=== PATIENT | male | born 1940 | race Caucasian/White ===

== ENCOUNTER → 2022-11-21 | Outpatient (CLI) | payer MEDICARE ==
--- NOTE | 2022-11-23 21:53 | PE ---
EXAMINATION TYPE: PET CT fusion skull to thigh DATE OF EXAM: 11/21/2022 COMPARISON: No recent CT Prior PET/CT: 06/23/2022 HISTORY: Esophageal cancer TECHNIQUE: Following the intravenous administration of 10.55 mCi of F-18 FDG, whole body images are performed from the skull base to the midthigh. Images are reviewed on the computer in the coronal, a xial, and sagittal planes. Reconstructed rotating images are created on independent workstation and reviewed on the computer. A localization and attenuation correction CT is performed in conjunction with the PET scan. DLP: 459.70 mGycm SCAN: Subsequent Blood glucose: 93 mg/dL Average Mediastinum SUV: 1.56 Average Liver SUV: 2.07 FINDINGS: NECK: No abnormal uptake THORAX: There is a 1.1 cm pretracheal lymph node. This has intermediate uptake of 1.86. ABDOMEN: There is some fullness within the right adrenal gland. No suspicious uptake is evident. Some scattered reticular within the colon. PELVIS: No abnormal uptake OSSEOUS STRUCTURES: No abnormal uptake LOCALIZATION CT: There is a hypodense area within the inferior left lobe thyroid. This could be furth er evaluated with ultrasound. Coronary artery calcification is noted. Dependent increased infiltrates are present more focal in the posterior medial right lung. Correlate for atelectasis. Follow-up is r ecommended. COMPARISON: Intense uptake at the gastroesophageal junction is not present on the current examination . IMPRESSION: 1. No suspicious uptake to suggest recurrent or metastatic esophageal cancer. 2. Intermediate signal lymph node pretracheal space. This could be a reactive lymph node.
== END | disposition home or self-care (01) ==
LOC: RADPETMAIN 10:15
PROVIDERS: ATTEND Internal Medicine Hematology & Oncology
DX: C15.5 Malignant neoplasm of lower third of esophagus (principal)
CPT/HCPCS: 78815; A9552

== ENCOUNTER → 2023-02-12 | Outpatient (CLI) | payer MEDICARE ==
--- NOTE | 2023-02-13 08:24 | PE ---
EXAMINATION TYPE: PET CT fusion skull to thigh DATE OF EXAM: 02/12/2023 CLINICAL INDICATION:Male, 82 years old with history of C15.5 Esophageal CA; TECHNIQUE: Following the intravenous administration of 12.3 mCi of F-18 FDG, whole body images are performed from the skull base to the midthigh. Images are reviewed on the computer in the coronal, a xial, and sagittal planes. Reconstructed rotating images are created on independent workstation and reviewed on the computer. A non-contrast CT is performed in conjunction with the PET scan. Glucose level 90 mg/dL CT DLP: 525 mGycm, Automated exposure control for dose reduction was used. COMPARISON: CT None, PET/CT 11/21/2022, FINDINGS: Mediastinal SUV mean is 2.1. Hepatic parenchyma SUV mean is 3.0. SKULL BASE AND NECK: No suspicious radiotracer activity. CHEST, MEDIASTINUM, AND HILAR REGION: Abnormal FDG activity. * Right low paratracheal lymph node max SUV 3.7 measuring 8 mm in short axis., Previously max SUV 2. 0 * superior left pulmonary hilum lymph node which is increase in metabolic activity max SUV 4.4, pre viously 2.0. * Left lower lobe pulmonary nodule-like opacity max SUV 4.2 there are some other areas of patchy upt john paul in the lung bases medially. On the right max SUV 3.9 and left 4.2. ABDOMEN AND PELVIS: No suspicious radiotracer activity. MUSCULOSKELETAL STRUCTURES: Sclerotic focus within the left acromion/scapula max SUV 4.7 previously 1 .6. Focus of uptake within the right proximal humerus max SUV 4.4. OTHER CT: Atherosclerosis of the carotid bifurcations. Bilateral aphakia. Severe coronary artery athe rosclerosis. Scattered reticular opacities throughout the lungs. Fusion hardware in the lower spine. Bilateral gynecomastia changes. IMPRESSION: Increasing metabolic activity within left superior pulmonary hilum lymph node and right low paratrach eal lymph node. Given some uptake within the lung parenchyma itself in the lung bases findings could be secondary to infectious/inflammatory process. Consider short-term follow-up CT to ensure stability .
== END | disposition home or self-care (01) ==
LOC: RADPETMAIN 14:34
PROVIDERS: ATTEND Internal Medicine Hematology & Oncology
DX: C15.5 Malignant neoplasm of lower third of esophagus (principal)
CPT/HCPCS: 78815; A9552

== ENCOUNTER 2024-01-12 17:11 | Observation (INO) | payer MEDICARE ==
--- NOTE | 2024-01-12 17:50 | ED ---
General Adult HPI - General Chief complaint: Weakness Stated complaint: cancer pt, cant swallow Time Seen by Provider: 01/12/24 17:31 Source: patient, family, RN notes reviewed, old records reviewed Mode of arrival: ambulatory Limitations: no limitations - History of Present Illness Initial comments: 83-year-old male presenting for evaluation of painful swallowing. Patient has known esophageal mass and he has received treatment including radiation. He states he had recent endoscopy showing an ulceration on the tumor. He is on Carafate and omeprazole. He is unable to tolerate any significant nutrition even liquids are painful to swallow. Patient has lost 30 pounds. - Related Data Allergies Allergy/AdvReac Type Severity Reaction Status Date / Time hayfever AdvReac Itching Uncoded 01/12/24 17:28 Review of Systems ROS Statement: Those systems with pertinent positive or pertinent negative responses have been documented in the HPI. ROS Other: All systems not noted in ROS Statement are negative. Past Medical History Additional Past Medical History / Comment(s): Esophageal cancer (August 2022 diagnosis) Chemo and radiation History of Any Multi-Drug Resistant Organisms: None Reported Past Psychological History: No Psychological Hx Reported Smoking Status: Former smoker Past Alcohol Use History: Occasional General Exam Limitations: no limitations General appearance: alert, in no apparent distress Head exam: Present: atraumatic, normocephalic Eye exam: Present: normal appearance, PERRL ENT exam: Present: normal exam, normal oropharynx Neck exam: Present: normal inspection. Absent: tenderness, meningismus Respiratory exam: Present: normal lung sounds bilaterally. Absent: respiratory distress Cardiovascular Exam: Present: regular rate, normal rhythm GI/Abdominal exam: Present: soft. Absent: distended, tenderness Extremities exam: Present: normal inspection, normal capillary refill. Absent: pedal edema Neurological exam: Present: alert, oriented X3 Psychiatric exam: Present: normal affect, normal mood Skin exam: Present: warm, dry, intact. Absent: cyanosis, diaphoretic Course Vital Signs 01/12/24 17:22 Temperature 98.3 F Pulse Rate 64 Respiratory 16 Rate Blood Pressure 98/51 O2 Sat by Pulse 100 Oximetry Medical Decision Making - Medical Decision Making Was pt. sent in by a medical professional or institution (, PA, SENIOR LINUX SYSTEMS ENGINEER, urgent care, hospital, or [place] health care facility...) When possible be specific @ -No Did you speak to anyone other than the patient for history (EMS, parent, family, police, friend...)? What history was obtained from this source @ -No Did you review nursing and triage notes (agree or disagree)? Why? @ -I reviewed and agree with nursing and triage notes Were old charts reviewed (outside hosp., previous admission, EMS record, old EKG, old radiological studies, urgent care reports/EKG's, [place] health care facility records)? Report findings @ -No old charts were reviewed Differential Diagnosis: Known esophageal mass, dehydration, malnutrition EKG interpreted by me (3pts min.). @ -As above X-rays interpreted by me (1pt min.). @ -None done CT interpreted by me (1pt min.). @ -None done U/S interpreted by me (1pt. min.). @ -None done What testing was considered but not performed or refused? (CT, X-rays, U/S, labs)? Why? @ -None What meds were considered but not given or refused? Why? @ -None Did you discuss the management of the patient with other professionals (professionals i.e. , PA, SENIOR LINUX SYSTEMS ENGINEER, lab, RT, psych nurse, social media executive, sales force developer, teacher, chief sales officer, disease case manager)? Give summary @ -Dr. Crain Was smoking cessation discussed for >3mins.? @ -No Was critical care preformed (if so, how long)? @ -No Were there social determinants of health that impacted care today? How? (Homelessness, low income, unemployed, alcoholism, drug addiction, transportation, low edu. Level, literacy, decrease access to med. care, group home, rehab)? @ -No Was there de-escalation of care discussed even if they declined (Discuss DNR or withdrawal of care, Hospice)? DNR status @ -No What co-morbidities impacted this encounter? (DM, HTN, Smoking, COPD, CAD, Cancer, CVA, ARF, Chemo, Hep., AIDS, mental health diagnosis, sleep apnea, morbid obesity)? @Esophageal cancer Was patient admitted / discharged? Hospital course, mention meds given and route, prescriptions, significant lab abnormalities, going to OR and other pertinent info. @ -[83-year-old male with progressively worsening painful and difficulty swallowing with known esophageal cancer and esophageal ulceration. Patient has lost a significant amount of weight secondary to inability to swallow and painful swallowing. Given IV fluids. Electrolytes and blood counts are obtained. Patient is anemic without baseline for comparison. Patient will benefit from evaluation by his oncologist Dr. Kimbrough and possibly gastroenterolog y for PEG tube placement. Case discussed with Dr. Crain who will admit. Undiagnosed new problem with uncertain prognosis? @ -No Drug Therapy requiring intensive monitoring for toxicity (Heparin, Nitro, Insulin, Cardizem)? @ -No Were any procedures done? @ -No Diagnosis/symptom? @ -Esophageal cancer, malnutrition, dehydration Acute, or Chronic, or Acute on Chronic? @Acute on chronic Uncomplicated (without systemic symptoms) or Complicated (systemic symptoms)? @ -Default Side effects of treatment? @ -No Exacerbation, Progression, or Severe Exacerbation? @ -No Poses a threat to life or bodily function? How? (Chest pain, USA, OR, pneumonia, PE, COPD, DKA, ARF, appy, cholecystitis, CVA, Diverticulitis, Homicidal, Suicidal, threat to staff... and all critical care pts) @ -[Yes, renal failure, electrolyte abnormality, - Lab Data Result diagrams: 01/12/24 18:02 01/12/24 18:02 Lab Results 01/12/24 01/12/24 Range/Units 18:02 18:02 WBC 8.1 (3.8-10.6) k/uL RBC 2.81 L (4.30-5.90) m/uL Hgb 9.1 L (13.0-17.5) gm/dL Hct 27.1 L (39.0-53.0) % MCV 96.6 (80.0-100.0) fL MCH 32.3 (25.0-35.0) pg MCHC 33.5 (31.0-37.0) g/dL RDW 12.7 (11.5-15.5) % Plt Count 272 (150-450) k/uL MPV 8.5 Neutrophils % 83 % Lymphocytes % 9 % Monocytes % 6 % Eosinophils % 0 % Basophils % 0 % Neutrophils # 6.7 (1.3-7.7) k/uL Lymphocytes # 0.8 L (1.0-4.8) k/uL Monocytes # 0.4 (0-1.0) k/uL Eosinophils # 0.0 (0-0.7) k/uL Basophils # 0.0 (0-0.2) k/uL Sodium 138 (137-145) mmol/L Potassium 3.6 (3.5-5.1) mmol/L Chloride 107 (98-107) mmol/L Carbon Dioxide 25 (22-30) mmol/L Anion Gap 6 mmol/L BUN 24 H (9-20) mg/dL Creatinine 0.92 (0.66-1.25) mg/dL Est GFR (CKD-EPI)AfAm 88 (>60 ml/min/1.73 sqM) Est GFR (CKD-EPI)NonAf 76 (>60 ml/min/1.73 sqM) Glucose 105 H (74-99) mg/dL Calcium 9.1 (8.4-10.2) mg/dL Total Bilirubin 0.4 (0.2-1.3) mg/dL AST 18 (17-59) U/L ALT 13 (4-49) U/L Alkaline Phosphatase 56 (38-126) U/L Total Protein 5.6 L (6.3-8.2) g/dL Albumin 3.5 (3.5-5.0) g/dL Disposition Clinical Impression: Anemia, Dehydration, Esophageal cancer Disposition: ADMITTED IP TO THIS HOSP Condition: Stable Is patient prescribed a controlled substance at d/c from ED?: No Referrals: Corey Guevara MD [Primary Care Provider] - 1-2 days Time of Disposition: 18:31
[2024-01-12] MEDS: SODIUM CHLORIDE 0.9% 500 ML 500 ML IV ONE (18:01)
[2024-01-12 18:18] LABS: ALT 13 U/L (4-49); AST 18 U/L (17-59); African American GFR (CKD) 88 (>60 ml/min/1.73 sqM); Albumin 3.5 g/dL (3.5-5.0); Alkaline Phosphatase 56 U/L (38-126); Anion Gap 6 mmol/L; Blood Urea Nitrogen 24 mg/dL (9-20); Calcium 9.1 mg/dL (8.4-10.2); Carbon Dioxide 25 mmol/L (22-30); Chloride 107 mmol/L (98-107); Glucose 105 mg/dL (74-99); Non-African American GFR(CKD) 76 (>60 ml/min/1.73 sqM); Potassium 3.6 mmol/L (3.5-5.1); Sodium 138 mmol/L (137-145); Total Bilirubin 0.4 mg/dL (0.2-1.3); Total Protein 5.6 g/dL (6.3-8.2)
[2024-01-12 18:24] LABS: Basophils % (A) 0 %; Eosinophils % (A) 0 %; HCT 27.1 % (39.0-53.0); HGB 9.1 gm/dL (13.0-17.5); Lymphocytes # (A) 0.8 k/uL (1.0-4.8); Lymphocytes % (A) 9 %; MCH 32.3 pg (25.0-35.0); MCHC 33.5 g/dL (31.0-37.0); MCV 96.6 fL (80.0-100.0); Mean Platelet Volume 8.5; Monocytes # (A) 0.4 k/uL (0-1.0); Monocytes % (A) 6 %; Neutrophils # (A) 6.7 k/uL (1.3-7.7); Neutrophils % (A) 83 %; Platelet Count 272 k/uL (150-450); RBC 2.81 m/uL (4.30-5.90); RDW 12.7 % (11.5-15.5); WBC 8.1 k/uL (3.8-10.6)
[2024-01-12] MEDS ORDERED: HYDROmorphone 0.5 MG/0.5 ML SYRINGE IVP PRN (18:26)
[2024-01-12] MEDS ORDERED: NALOXONE 0.4 MG/ML 1 ML VIAL IV PRN (18:26)
[2024-01-12] MEDS: DEXTROSE 5%-0.9% NACL 1,000 ML IV SCH (18:42)
[2024-01-12] MEDS: PANTOPRAZOLE 40 MG/10 ML VIAL IVP STA (18:43)
[2024-01-12] MEDS: PANTOPRAZOLE 40 MG/10 ML VIAL IVP SCH (20:59)
--- NOTE | 2024-01-12 22:10 | P.HPIM ---
History of Present Illness H&P Date: 01/12/24 Chief Complaint: Painful swallowing This is a very pleasant 83-year-old patient who follows with Dr. Guevara. Oncologist Dr. Kimbrough. Patient has a diagnosis of esophageal cancer. Patient's last EGD was with Dr. Gore out of [facility] 6 weeks ago. He was told he has a localized esophageal tumor with a ulcer on top of it. He has been offered surgery but patient has declined the same. Patient the past has received 5 weeks of chemotherapy followed by 5 weeks of x-ray radiation. This was followed by 3 nuclear radiation this was about 3 months ago. For 5 to 6 weeks patient noticed that he been having increasing pain with swallowing swallowing which has become much more significant in 3 weeks. Unable to keep anything really down. Given having some custard in the ER was very painful he had to stop after 2 3 teaspoons. He does follow with oncologist Dr. Kimbrough. Has been losing weight. Patient was drinking up to 1 dozen beers a week. Up till about 2 weeks ago. Review of systems: GEN.: Decreased appetite, weight loss EYES: None HEENT: None NECK: None RESPIRATORY: None CARDIOVASCULAR: None GASTROINTESTINAL: Painful swallowing GENITOURINARY: None MUSCULOSKELETAL: None LYMPHATICS: None HEMATOLOGICAL: None PSYCHIATRY: None NEUROLOGICAL: None Social history: Lives alone. Recently become a . Patient smoked for about 20 years stopped about 40 years ago. Retired from [employer] patient does drink a dozen beer a week. Last drink was 2 weeks ago. Physical examination: VITAL SIGNS: 97.6, 72, 18, 128 x 54, 100% room air GENERAL: BMI 19.3, laying in bed awake a bit tired appearing. EYES: Pupils equal. Conjunctiva christy l. HEENT: External appearance of nose and ears normal, oral cavity grossly normal. NECK: JVD not raised; masses not palpable. HEART: First and second heart sounds are normal; no edema. LUNGS: Respiratory rate normal; clear to auscultation. ABDOMEN: Soft, nontender, liver spleen not palpable, no masses palpable. PSYCH: Alert and oriented x3; mood and affect christy l. MUSCULOSKELETAL:No Clubbing/cyanosis;muscles-grossly intact. Decreased muscle mass subcutaneous fat. NEUROLOGICAL: Cranial nerves grossly intact; no facial asymmetry, power and sensation grossly intact. LYMPHATICS: No lymph nodes palpable in the axilla and neck INVESTIGATIONS, reviewed in the clinical context: January 12, 2024: White count 8.1 hemoglobin 9.1 platelets 232 sodium 138 potassium 3.6 creatinine 0.92 BUN 24 Assessment plan: -Odynophagia, resulting from patient having esophageal tumor which is above the esophagogastro junction. It is somewhat localized from what he tells me. His last EGD [address] Gore at [facility]. He also has an ulcer on top of the tumor. He was offered surgery but he declined the same. Now patient for the last 5-6 is having more more trouble and painful eating. It may be notices patient is drinking about 1 dozen beers every week up till 2 weeks ago. Had a lengthy discussion with the patient. Other option will be having a feeding tube. But given that he was given an option that since the tumor is localized then he should go back and talk to his surgeon/oncologist about resection of the tumor and may get some quality of life. Dr. Kimbrough from oncology is being consulted here who is his oncologist -Weight loss from poor appetite from painful swallowing -Essential hypertension Vasotec -Hyperlipidemia Zocor 40 mg nightly -Esophageal cancer supposedly localized with a ulcer on top of it. Follow-up with Dr. Kimbrough oncologist -DNR -Patient's son Carlos and his daughter Elis other medical POA Care was discussed with patient. Questions answered. Past Medical History Additional Past Medical History / Comment(s): Esophageal cancer (August 2022 diagnosis) Chemo and radiation History of Any Multi-Drug Resistant Organisms: None Reported Past Psychological History: No Psychological Hx Reported Smoking Status: Former smoker Past Alcohol Use History: Occasional Medications and Allergies Home Medications Medication Instructions Recorded Confirmed Type Enalapril [Vasotec] 10 mg PO DAILY 01/12/24 01/12/24 History Omeprazole 40 mg PO AC-BID 01/12/24 01/12/24 History Simvastatin [Zocor] 40 mg PO HS 01/12/24 01/12/24 History Sucralfate [Carafate] 1 gm PO QID 01/12/24 01/12/24 History Allergies Allergy/AdvReac Type Severity Reaction Status Date / Time hayfever AdvReac Itching Uncoded 01/12/24 18:49 Physical Exam Vitals: Vital Signs Temp Pulse Pulse Resp BP BP Pulse Ox 01/12/24 21:50 97.6 F 72 18 128/54 100 01/12/24 21:23 72 18 99/51 01/12/24 20:17 62 18 111/56 99 01/12/24 17:22 98.3 F 64 16 98/51 100 Intake and Output 01/12/24 01/12/24 01/12/24 06:59 14:59 22:59 Other: Weight 64.41 kg Results CBC & Chem 7: 01/12/24 18:02 01/12/24 18:02 Labs: Abnormal Lab Results - Last 24 Hours (Table) 01/12/24 01/12/24 Range/Units 18:02 18:02 RBC 2.81 L (4.30-5.90) m/uL Hgb 9.1 L (13.0-17.5) gm/dL Hct 27.1 L (39.0-53.0) % Lymphocytes # 0.8 L (1.0-4.8) k/uL BUN 24 H (9-20) mg/dL Glucose 105 H (74-99) mg/dL Total Protein 5.6 L (6.3-8.2) g/dL
[2024-01-12] MEDS: ENOXAPARIN 40 MG/0.4 ML SYRINGE SQ SCH (23:39)
[2024-01-12] MEDS: PANTOPRAZOLE 40 MG TABLET PO SCH (23:39)
[2024-01-13] MEDS: lisinopriL 10 MG TAB PO SCH (09:54)
--- NOTE | 2024-01-13 14:45 | P.CONS ---
History of Present Illness - Reason for Consult Consult date: 01/13/24 Esophageal cancer, painful swallowing Requesting physician: Emeka Lugo - Chief Complaint Painful swallowing - History of Present Illness This a pleasant 83-year-old male with esophageal cancer diagnosed about a year and a half ago who had presented to the emergency department with complaints of painful swallowing. He follows with Dr. Kimbrough and Dr. Luke out of [facility]. He has had previous chemotherapy, and 2 rounds of radiation treatments. He was seen by Dr. Luke on 12/20/2023 for an EGD which reported findings of partial obstructed malignant esophageal tumor of the lower third part of the esophagus with ulceration causing pain. In her note she had stated possibility of esophageal stent although high risk of perforation. Patient states he has not followed with Dr. Kimbrough in quite some time. He states he is not having difficulty swallowing but it is painful. He has been maintaining with liquids at home and soft creamy foods like puddings and yogurt. He has been losing weight approximately 30 pounds. Review of Systems REVIEW OF SYSTEMS: CARDIOPULMONARY: No chest pain or shortness of breath. Gastrointestinal: No abdominal pain. Painful swallowing. No nausea or vomiting. No hematemesis, coffee-ground emesis. No rectal bleeding, or melena. GENITOURINARY: No dysuria or hematuria. MUSCULOSKELETAL: Reports normal range of motion. SKIN: No rashes. No jaundice. ENDOCRINE: No chills, fevers. No excessive weight gain or loss. No polydipsia or polyuria. PSYCHIATRIC: Unremarkable. NEUROLOGY: No change in mental status. Denies dizziness, headache. ENT: Vision unremarkable. CONSTITUTIONAL: No recent weight loss. No fever, chills, night sweats. Past Medical History Past Medical History: Hyperlipidemia, Hypertension Additional Past Medical History / Comment(s): Esophageal cancer (August 2022 diagnosis) Chemo and radiation History of Any Multi-Drug Resistant Organisms: None Reported Additional Past Surgical History / Comment(s): Rotator cuffs, bilateral; lower back surgery due to staph infection; bilat cataracts Past Anesthesia/Blood Transfusion Reactions: No Reported Reaction Additional Past Anesthesia/Blood Transfusion Reaction / Comm: Pt given blood r/t esophageal bleed, no problems Past Psychological History: No Psychological Hx Reported Smoking Status: Former smoker Past Alcohol Use History: Occasional - Past Family History Father Family Medical History: Cancer Medications and Allergies Home Medications Medication Instructions Recorded Confirmed Type Enalapril [Vasotec] 10 mg PO DAILY 01/12/24 01/12/24 History Omeprazole 40 mg PO AC-BID 01/12/24 01/12/24 History Simvastatin [Zocor] 40 mg PO HS 01/12/24 01/12/24 History Sucralfate [Carafate] 1 gm PO QID 01/12/24 01/12/24 History Allergies Allergy/AdvReac Type Severity Reaction Status Date / Time hayfever AdvReac Itching Uncoded 01/12/24 18:49 Physical Exam Vitals: Vital Signs Temp Pulse Pulse Resp BP BP Pulse Ox 01/13/24 07:53 97.9 F 55 L 16 109/57 100 01/13/24 01:34 97.9 F 67 17 103/45 100 01/12/24 22:00 72 18 01/12/24 21:50 97.6 F 72 18 128/54 100 01/12/24 21:23 72 18 99/51 01/12/24 20:17 62 18 111/56 99 01/12/24 17:22 98.3 F 64 16 98/51 100 Intake and Output 01/12/24 01/13/24 01/13/24 22:59 06:59 14:59 Other: Weight 64.41 kg General appearance: The patient is alert, oriented, appears in no acute distress. HET: Head is normocephalic and atraumatic. Conjunctiva pink. Sclera anicteric. Neck: Supple without lymphadenopathy. Trachea midline. Heart: Regular. Lungs: Equal expansion, normal respiratory effort. Abdomen: Soft, nontender, nondistended. Skin: No rashes. No jaundice. Extremities: Normal skin color and turgor. No pedal edema. Neurological: No focal deficits. Alert and oriented x3. Results CBC & Chem 7: 01/12/24 18:02 01/12/24 18:02 Labs: Abnormal Lab Results - Last 24 Hours (Table) 01/12/24 01/12/24 Range/Units 18:02 18:02 RBC 2.81 L (4.30-5.90) m/uL Hgb 9.1 L (13.0-17.5) gm/dL Hct 27.1 L (39.0-53.0) % Lymphocytes # 0.8 L (1.0-4.8) k/uL BUN 24 H (9-20) mg/dL Glucose 105 H (74-99) mg/dL Total Protein 5.6 L (6.3-8.2) g/dL Assessment and Plan (1) Painful swallowing Narrative/Plan: 3-year-old male diagnosed with esophageal cancer with recent diagnosis of ulceration of tumor likely causing painful swallowing. He follows with Dr. Kimbrough from oncology here as well as Dr. Luke from [facility]. Likely ulceration is causing the pain. Recent EGD on 12/20/2023 with findings of the ulceration and partial obstruction from esophageal tumor. Patient likely will need PEG tube placement for nutritional support. Will further discuss plan of care with oncology. Current Visit: Yes Status: Acute Code(s): R13.10 - DYSPHAGIA, UNSPECIFIED SNOMED Code(s): 11436338 (2) Esophageal cancer Current Visit: Yes Status: Acute Code(s): C15.9 - MALIGNANT NEOPLASM OF ESOPHAGUS, UNSPECIFIED SNOMED Code(s): 672866147 (3) Anemia Current Visit: Yes Status: Acute Code(s): D64.9 - ANEMIA, UNSPECIFIED SNOMED Code(s): 327217792 Plan: 1. Continue symptomatic and supportive care 2. Diet as tolerated, will increase to full liquid diet 3. Await further recommendations from oncology 4. Further recommendations forthcoming based on clinical course. Consider possible PEG tube placement for nutrition. Thank you for this consultation, we will continue to follow. Dr. Chaz Velarde I agree with the dictator's note, documented as a scribe by Kayla Alvarez.
--- NOTE | 2024-01-13 17:23 | P.PN ---
Progress Note - Text Progress Note Date: 01/13/24 Chief Complaint: Painful swallowing This is a very pleasant 83-year-old patient who follows with Dr. Guevara. Oncologist Dr. Kimbrough. Patient has a diagnosis of esophageal cancer. Patient's last EGD was with Dr. Gore out of [facility] 6 weeks ago. He was told he has a localized esophageal tumor with a ulcer on top of it. He has been offered surgery but patient has declined the same. Patient the past has received 5 weeks of chemotherapy followed by 5 weeks of x-ray radiation. This was followed by 3 nuclear radiation this was about 3 months ago. For 5 to 6 weeks patient noticed that he been having increasing pain with swallowing swallowing which has become much more significant in 3 weeks. Unable to keep anything really down. Given having some custard in the ER was very painful he had to stop after 2 3 teaspoons. He does follow with oncologist Dr. Kimbrough. Has been losing weight. Patient was drinking up to 1 dozen beers a week. Up till about 2 weeks ago. January 12: Patient able to keep some liquids down. Initially GI informed me th at patient would not be a candidate for EGD/G-tube will have to follow-up with their team at [facility]. Then some more information is obtained from the patient apparently he may not be a surgical candidate. Patient awaiting input from the oncology team. Once that is determined patient may be then be scheduled for PEG tube probably on Thursday. Will await further input from oncology team. Present alongside the patient is his late 's friend. Later today spoke to patient's oncologist Dr. Kimbrough. And said that patient is willing to go for possible surgery if that is an option. He did say that patient only had declined surgery. Given that he suggested the patient to have a J-tube as opposed to a G-tube. Time spent today about 50 minutes with over 30 minutes of discussion. Active Medications Atorvastatin Calcium (Atorvastatin 20 Mg Tab) 20 mg PO HS [facility] Enoxaparin Sodium (Enoxaparin 40 Mg/0.4 Ml Syringe) 40 mg SQ DAILY [facility] Last Admin: 01/13/24 09:55 Dose: Not Given Dextrose/Sodium Chloride (Dextrose 5%-Ns Iv Soln) 1,000 mls @ 75 mls/hr IV .[id number] [facility] Last Admin: 01/12/24 18:42 Dose: 75 mls/hr Lisinopril (Lisinopril 10 Mg Tab) 10 mg PO DAILY [facility] Last Admin: 01/13/24 09:54 Dose: Not Given Naloxone HCl (Naloxone 0.4 Mg/Ml 1 Ml Vial) 0.2 mg IV Q2M PRN PRN Reason: Opioid Reversal Pantoprazole Sodium (Pantoprazole 40 Mg Tablet) 40 mg PO AC-BID [facility] Last Admin: 01/13/24 16:56 Dose: 40 mg Social history: Lives alone. Recently become a . Patient smoked for about 20 years stopped about 40 years ago. Retired from [employer] patient does drink a dozen beer a week. Last drink was 2 weeks ago. Physical examination: VITAL SIGNS: 98.4, 62, 14, 132/84, 97% room air GENERAL: Reclining in bed, comfortable EYES: Pupils equal. Conjunctiva christy l. HEENT: External appearance of nose and ears normal, oral cavity grossly normal. NECK: JVD not raised; masses not palpable. HEART: First and second heart sounds are normal; no edema. LUNGS: Respiratory rate normal; clear to auscultation. ABDOMEN: Soft, nontender, liver spleen not palpable, no masses palpable. PSYCH: Alert and oriented x3; mood and affect christy l. MUSCULOSKELETAL:No Clubbing/cyanosis;muscles-grossly intact. Decreased muscle mass subcutaneous fat. INVESTIGATIONS, reviewed in the clinical context: January 12, 2024: White count 8.1 hemoglobin 9.1 platelets 232 sodium 138 potassium 3.6 creatinine 0.92 BUN 24 Assessment plan: -Odynophagia, resulting from patient having esophageal tumor which is above the esophagogastro junction. It is somewhat localized from what he tells me. His last EGD [address] Gore at [facility]. He also has an ulcer on top of the tumor. He was offered surgery but he declined the same. Now patient for the last 5-6 is having more more trouble and painful eating. It may be notices patient is drinking about 1 dozen beers every week up till 2 weeks ago. Had a lengthy discussion with the patient. Other option will be having a feeding tube. But given that he was given an option that since the tumor is localized then he should go back and talk to his surgeon/oncologist about resection of the tumor and may get some quality of life. Spoke to Dr. Kimbrough today: Patient had declined surgery in the past. Given that patient is considering surgery now, patient could have a J-tube. Not a G-tube. He will see the patient outpatient to stage him again. -Weight loss from poor appetite from painful swallowing -Essential hypertension Vasotec -Hyperlipidemia Zocor 40 mg nightly -Esophageal cancer supposedly localized with a ulcer on top of it. Follow-up with Dr. Kimbrough oncologist -DNR -Patient's son Carlos and his daughter Elis other medical POA Discussed with patient and patient's friend at the bedside. Also did communicate with GI. And Dr. Kimbrough. Past Medical History Additional Past Medical History / Comment(s): Esophageal cancer (August 2022 diagnosis) Chemo and radiation History of Any Multi-Drug Resistant Organisms: None Reported Past Psychological History: No Psychological Hx Reported Smoking Status: Former smoker Past Alcohol Use History: Occasional
[2024-01-13] MEDS: ATORVASTATIN 20 MG TAB PO SCH (19:44)
--- NOTE | 2024-01-13 20:28 | P.CONS ---
History of Present Illness - Reason for Consult Consult date: 01/13/24 esophageal cancer Requesting physician: Emeka Lugo - Chief Complaint odynphagia - History of Present Illness Patient is a 83 year old male with a significant history of esopaheal cancer. He is a patient of Dr. Kimbrough. He initially presented with progressive fatig ue,melena of about 2 months duration,he was found to have significant anemia,required transfusion with PRBC. He underwent EGD on 05/26/2022 which revealed a mass at GE junction,biopsy was positive for invasive moderatelly differentiated adenocarcinoma. On 06/05/2022,CT scan of chest/abdomen/pelvis r evealed distal esophageal eccentric wall thickening,borderline enlarged subcarinal/gastrichepatic ligament nodes up to 8mm and multiple mediastinal node periesophageal nodes suspicious for metastatic disease. PDL-1 negative,OSCAR,HER2/CHINO negative. He had a PET scan on 06/23/2022,revealed suspicious uptake at GE junction SUV of 16.8,midly metabolically active nodes in left hilar area with SUV of 3.5. EUS done on 07/21/2022,revealed T3 lesion,one oval mediastinal node,11 mm,FNA of it was negative ,staged as endoscopic stage [id number]. He started weekly taxol/carbo with radiation on 08/11/2022,he completed radiation on 09/19/2022. Repeat PET scan on 11/21/2022 revealed no evidence of disease. Repeat PET scan on 01/12/2023 revealed increasing metabolic activity within left superior pulmonary hilum lymph node and right low paratracheal lymph node could be secondary to inflammatory process and sclerotic focus within the left acromion/scapula and focus of uptake within the right proximal humerus. On 06/04/2023,repeat PET scan showed new uptake in distal esophgous. On 06/25/2023,he had repeat EGD biopsy of distal esophagus showed atypical cells highly suspicious of adenocarcinoma. It was discussed with patient that ideally,esophagectomy should be considered, however, he refused it. Alternativ laurie, he could consider cryoablation. Pt was referred back to Dr Luke for further evaluation. Last f/u in clinic was in July 2023, he missed subsequent f/u in August. Since he was last seen, he has f/u with Dr Luke and underwent 3 fractions of RT. Repeat EGD on 12/21/23 showed partially obstructing, malignant esophageal tumor in the lower third of the esophagus. Ulceration from the tumor likely etiology of patient's pain. Due to ulceration it is unlikely that cryotherapy is an option, could consider esophageal stenting however risk of perforation is higher given noted ulceration. No gross lesions noted within the entire stomach. Normal duodenal bulb and second portion of the duodenum. Patient has scheduled f/u with Dr. Kimbrough on 01/24. Patient presented to emergency room with complaints of pain with swallowing, decreased oral intake and weakness. Reporting 10 lb weight loss over the last cpl months. CBC showing WBC 8.1, hemoglobin 9.1, MCV 96.6, platelets 272,000. Creatinine 0.92, GFR 76. LFTs and bilirubin WNL. Patient is afebrile and hemodynamically stable. Today's visit patient is reporting improvement in symptoms. He continues on IV hydration and PPI. Denies nausea vomiting diarrhea and abdominal pain. Review of Systems 10 point ROS is negative except as stated in the HPI Past Medical History Past Medical History: Hyperlipidemia, Hypertension Additional Past Medical History / Comment(s): Esophageal cancer (August 2022 diagnosis) Chemo and radiation History of Any Multi-Drug Resistant Organisms: None Reported Additional Past Surgical History / Comment(s): Rotator cuffs, bilateral; lower back surgery due to staph infection; bilat cataracts Past Anesthesia/Blood Transfusion Reactions: No Reported Reaction Additional Past Anesthesia/Blood Transfusion Reaction / Comm: Pt given blood r/t esophageal bleed, no problems Past Psychological History: No Psychological Hx Reported Smoking Status: Former smoker Past Alcohol Use History: Occasional - Past Family History Father Family Medical History: Cancer Medications and Allergies Home Medications Medication Instructions Recorded Confirmed Type Enalapril [Vasotec] 10 mg PO DAILY 01/12/24 01/12/24 History Omeprazole 40 mg PO AC-BID 01/12/24 01/12/24 History Simvastatin [Zocor] 40 mg PO HS 01/12/24 01/12/24 History Sucralfate [Carafate] 1 gm PO QID 01/12/24 01/12/24 History Allergies Allergy/AdvReac Type Severity Reaction Status Date / Time hayfever AdvReac Itching Uncoded 01/12/24 18:49 Physical Exam Vitals: Vital Signs Temp Pulse Pulse Resp BP BP Pulse Ox 01/13/24 12:40 98.4 F 62 14 132/84 97 01/13/24 07:53 97.9 F 55 L 16 109/57 100 01/13/24 01:34 97.9 F 67 17 103/45 100 01/12/24 22:00 72 18 01/12/24 21:50 97.6 F 72 18 128/54 100 01/12/24 21:23 72 18 99/51 01/12/24 20:17 62 18 111/56 99 01/12/24 17:22 98.3 F 64 16 98/51 100 Intake and Output 01/12/24 01/13/24 01/13/24 22:59 06:59 14:59 Other: Weight 64.41 kg - Constitutional General appearance: average body habitus, no acute distress - EENT Eyes: anicteric sclerae, EOMI ENT: hearing grossly normal - Respiratory Respiratory: bilateral: CTA - Cardiovascular Rhythm: regular - Gastrointestinal General gastrointestinal: soft, no tenderness - Integumentary Integumentary: no cyanotic - Neurologic Neurologic: CNII-XII intact - Musculoskeletal Musculoskeletal: strength equal bilaterally - Psychiatric Psychiatric: A&O x's 3 Results CBC & Chem 7: 01/12/24 18:02 01/12/24 18:02 Labs: Abnormal Lab Results - Last 24 Hours (Table) 01/12/24 01/12/24 Range/Units 18:02 18:02 RBC 2.81 L (4.30-5.90) m/uL Hgb 9.1 L (13.0-17.5) gm/dL Hct 27.1 L (39.0-53.0) % Lymphocytes # 0.8 L (1.0-4.8) k/uL BUN 24 H (9-20) mg/dL Glucose 105 H (74-99) mg/dL Total Protein 5.6 L (6.3-8.2) g/dL Assessment and Plan (1) Dehydration Current Visit: Yes Status: Acute Priority: High Code(s): E86.0 - DEHYDRATION SNOMED Code(s): 62697257 (2) Esophageal cancer Current Visit: Yes Status: Acute Priority: High Code(s): C15.9 - MALIGNANT NEOPLASM OF ESOPHAGUS, UNSPECIFIED SNOMED Code(s): 257833577 (3) Painful swallowing Current Visit: Yes Status: Acute Priority: High Code(s): R13.10 - DYSPHAGIA, UNSPECIFIED SNOMED Code(s): 26020612 Plan: Esophageal cancer, odynphagia: -Oncology history and POC as dictated in the HPI -On 06/25/2023,he had repeat EGD biopsy of distal esophagus showed atypical cells highly suspicious of adenocarcinoma. It was discussed with patient that ideally,esophagectomy should be considered, however, he refused it. Alternatively, he could consider cryoablation. Pt was referred back to Dr Luke for further evaluation. Last f/u in clinic was in July 2023, he missed durand bsequent f/u in August. Since he was last seen, he has f/u with Dr Luke and underwent 3 fractions of RT. -Repeat EGD on 12/21/23 showed partially obstructing, malignant esophageal tumor in the lower third of the esophagus. Ulceration from the tumor likely etiology of patient's pain. Due to ulceration it is unlikely that cryotherapy is an option, could consider esophageal stenting however risk of perforation is higher given noted ulceration. No gross lesions noted within the entire stomach. Normal duodenal bulb and second portion of the duodenum. -Discussed with patient that he would still be a possible surgical candidate. He is amendable to surgery. Will further discuss goals of care and treatment options at /u with Dr. Kimbrough on 01/24. -Nutrition education discussed with patient and family. Encouraged increasing oral intake as tolerated. Spoke with GI team, will hold PEG placement for now until pt is evaluated by cardiothoracic surgery Dr attests: I have performed H&P and developed impression and plan of care for patient, discussed with dictator. I agree with dictated note, documented as a scribe
[2024-01-14 07:07] VITALS: BP 115/52; PULSE 57; RESP 17; TEMP 98.1
--- NOTE | 2024-01-14 13:15 | P.PN ---
Subjective Progress Note Date: 01/14/24 No acute events. Reporting improvement in symptoms. Tolerating oral intake, no n/v. Reporting persisting odynphagia but improved. Soft foods better tolerated. Plan for d/c today Objective - Vital Signs Vital signs: Vital Signs Temp 98.1 F 01/14/24 07:06 Pulse 57 L 01/14/24 07:06 Resp 17 01/14/24 07:06 BP 115/52 01/14/24 07:06 Pulse Ox 99 01/14/24 07:06 FiO2 Intake & Output 01/13/24 01/14/24 01/14/24 18:59 06:59 18:59 Intake Total 590 Balance 590 Intake: Oral 590 Other: # Voids 2 - Constitutional General appearance: Present: average body habitus, no acute distress - EENT Eyes: Present: anicteric sclerae, EOMI ENT: Present: hearing grossly normal - Respiratory Details: breathing is even and unlabored - Cardiovascular Details: skin warm and dry - Gastrointestinal General gastrointestinal: Present: soft. Absent: tenderness - Integumentary Integumentary: Absent: cyanotic - Neurologic Neurologic: Present: CNII-XII intact - Musculoskeletal Musculoskeletal: Present: strength equal bilaterally - Psychiatric Psychiatric: Present: A&O x's 3 - Labs CBC & Chem 7: 01/12/24 18:02 01/12/24 18:02 Assessment and Plan (1) Dehydration Status: Acute Priority: High Code(s): E86.0 - DEHYDRATION SNOMED Code(s): 87456568 (2) Esophageal cancer Status: Acute Priority: High Code(s): C15.9 - MALIGNANT NEOPLASM OF ESOPHAGUS, UNSPECIFIED SNOMED Code(s): 654136081 (3) Painful swallowing Status: Acute Priority: High Code(s): R13.10 - DYSPHAGIA, UNSPECIFIED SNOMED Code(s): 39652295 Plan: Esophageal cancer, odynphagia: -Oncology history and POC as dictated in the HPI -On 06/25/2023,he had repeat EGD biopsy of distal esophagus showed atypical cells highly suspicious of adenocarcinoma. It was discussed with patient that ideally,esophagectomy should be considered, however, he refused it. Alternatively, he could consider cryoablation. Pt was referred back to Dr Luke for further evaluation. Last f/u in clinic was in July 2023, he missed subsequent f/u in August. Since he was last seen, he has f/u with Dr Luke and underwent 3 fractions of RT. -Repeat EGD on 12/21/23 showed partially obstructing, malignant esophageal tumor in the lower third of the esophagus. Ulceration from the tumor likely etiology of patient's pain. Due to ulceration it is unlikely that cryotherapy is an option, could consider esophageal stenting however risk of perforation is higher given noted ulceration. No gross lesions noted within the entire stomach. Normal duodenal bulb and second portion of the duodenum. -Discussed with patient that he would still be a possible surgical candidate. He is now amendable to surgery. Will further discuss goals of care and treatment options at f/u with Dr. Kimbrough on 01/24. -Nutrition education discussed with patient and family. Encouraged increasing oral intake as tolerated. Spoke with GI team, will hold PEG placement for now until pt is evaluated by cardiothoracic surgery Dr attests: I have performed H&P and developed impression and plan of care for patient, discussed with dictator. I agree with dictated note, documented as a scribe
--- NOTE | 2024-01-14 14:35 | P.PN ---
Subjective Progress Note Date: 01/14/24 Principal diagnosis: Painful swallowing, esophageal cancer This a pleasant 83-year-old male with esophageal cancer diagnosed about a year and a half ago who had presented to the emergency department with complaints of painful swallowing. He follows with Dr. Kimbrough and Dr. Luke out of [facility]. He has had previous chemotherapy, and 2 rounds of radiation treatments. He was seen by Dr. Luke on 12/20/2023 for an EGD which reported findings of partial obstructed malignant esophageal tumor of the lower third part of the esophagus with ulceration causing pain. In her note she had stated possibility of esophageal stent although high risk of perforation. Patient sta abida he has not followed with Dr. Kimbrough in quite some time. He states he is not having difficulty swallowing but it is painful. He has been maintaining with liquids at home and soft creamy foods like puddings and yogurt. He has been losing weight approximately 30 pounds. 01/14/2024 Patient seen and examined today as a follow-up. States he is doing okay with full liquid diet however oatmeal was difficult to swallow. Spoke with oncology and they are recommending referral to thoracic surgery as an outpatient. He denies any abdominal pain, nausea or vomiting. Objective - Vital Signs Vital signs: Vital Signs Temp 98.1 F 01/14/24 07:06 Pulse 57 L 01/14/24 07:06 Resp 17 01/14/24 07:06 BP 115/52 01/14/24 07:06 Pulse Ox 99 01/14/24 07:06 FiO2 Intake & Output 01/13/24 01/14/24 01/14/24 18:59 06:59 18:59 Intake Total 590 Balance 590 Intake: Oral 590 Other: # Voids 2 - Exam General appearance: The patient is alert, oriented, appears in no acute distress. HET: Head is normocephalic and atraumatic. Conjunctiva pink. Sclera anicteric. Neck: Supple without lymphadenopathy. Abdomen: Soft, nontender, nondistended with bowel sounds. No guarding or rigidity. Extremities: Normal skin color and turgor. No pedal edema Skin: No rashes, no jaundice Neurological: No focal deficits. Alert and oriented. - Labs CBC & Chem 7: 01/12/24 18:02 01/12/24 18:02 Assessment and Plan (1) Painful swallowing Narrative/Plan: 3-year-old male diagnosed with esophageal cancer with recent diagnosis of ulceration of tumor likely causing painful swallowing. He follows with Dr. Kimbrough from oncology here as well as Dr. Luke from [facility]. Likely ulceration is causing the pain. Recent EGD on 12/20/2023 with findings of the ulceration and partial obstruction from esophageal tumor. Patient plan of care further discussed with oncology their plan is for outpatient referral to thoracic surgeon regarding tumor. No plans for PEG tube placement at this time. Status: Acute Priority: High Code(s): R13.10 - DYSPHAGIA, UNSPECIFIED SNOMED Code(s): 48880923 (2) Esophageal cancer Status: Acute Priority: High Code(s): C15.9 - MALIGNANT NEOPLASM OF ESOPHAGUS, UNSPECIFIED SNOMED Code(s): 160135354 (3) Anemia Status: Acute Code(s): D64.9 - ANEMIA, UNSPECIFIED SNOMED Code(s): 905529665 Plan: 1. Continue symptomatic and supportive care 2. Continue full liquid diet as tolerated 3. Patient plan of care discussed with oncology team. No plans for PEG tube placement at this time Thank you for this consultation, we will sign off at this time. Dr. Chaz Velarde I agree with the dictator's note, documented as a scribe by Kayla Alvarez.
--- NOTE | 2024-01-14 17:33 | P.DS ---
Providers Date of admission: 01/12/24 18:28 Expected date of discharge: 01/14/24 Attending physician: Roscoe Crain Consults: 01/12/24 18:26 Consult Physician Routine Consulting Provider: Mar Kimbrough Consult Reason/Comments: Esophageal tumor, weight loss, dehydration Do you want consulting provider notified?: Yes 01/12/24 18:36 Consult Physician Routine Consulting Provider: Brissa Velarde Consult Reason/Comments: Esophageal cancer, painful swallowing, possible PEG tube Do you want consulting provider notified?: Yes Primary care physician: [facility] Course: Chief Complaint: Painful swallowing This is a very pleasant 83-year-old patient who follows with Dr. Guevara. Oncologist Dr. Kimbrough. Patient has a diagnosis of esophageal cancer. Patient's last EGD was with Dr. Gore out of [facility] 6 weeks ago. He was told he has a localized esophageal tumor with a ulcer on top of it. He has been offered surgery but patient has declined the same. Patient the past has received 5 weeks of chemotherapy followed by 5 weeks of x-ray radiation. This was followed by 3 nuclear radiation this was about 3 months ago. For 5 to 6 weeks patient noticed that he been having increasing pain with swallowing swallowing which has become much more significant in 3 weeks. Unable to keep anything really down. Given having some custard in the ER was very painful he had to stop after 2 3 teaspoons. He does follow with oncologist Dr. Kimbrough. Has been losing weight. Patient was drinking up to 1 dozen beers a week. Up till about 2 weeks ago. January 12: Patient able to keep some liquids down. Initially GI informed me that patient would not be a candidate for EGD/G-tube will have to follow-up with their team at [facility]. Then some more information is obtained from the patient apparently he may not be a surgical candidate. Patient awaiting input from the oncology team. Once that is determined patient may be then be scheduled for PEG tube probably on Thursday. Will await further input from oncology team. Present alongside the patient is his late 's friend. Later today spoke to patient's oncologist Dr. Kimbrough. And said that patient is willing to go for possible surgery if that is an option. He did say that patient only had declined surgery. Given that he suggested the patient to have a J-tube as opposed to a G-tube. Time spent today about 50 minutes with over 30 minutes of discussion. January 13: Patient able to tolerate full liquids rather well. Including nutritional supplements. His pain is reasonable. Diet discussed. He will follow-up with see Dr. Kimbrough outpatient. Will do further testing see patient is a candidate for surgical intervention. Currently G-tube/PEG tube postponed. Patient understands. Will keep his appoint with Dr. Kimbrough coming up shortly. Social history: Lives alone. Recently become a . Patient smoked for about 20 years stopped about 40 years ago. Retired from [employer] patient does drink a dozen beer a week. Last drink was 2 weeks ago. Physical examination: VITAL SIGNS: 98.1, 57, 17, 115 x 52, 99% room air GENERAL: Reclining in bed, comfortable EYES: Pupils equal. Conjunctiva christy l. HEENT: External appearance of nose and ears normal, oral cavity grossly normal. NECK: JVD not raised; masses not palpable. HEART: First and second heart sounds are normal; no edema. LUNGS: Respiratory rate normal; clear to auscultation. ABDOMEN: Soft, nontender, liver spleen not palpable, no masses palpable. PSYCH: Alert and oriented x3; mood and affect christy l. MUSCULOSKELETAL:No Clubbing/cyanosis;muscles-grossly intact. Decreased muscle mass subcutaneous fat. INVESTIGATIONS, reviewed in the clinical context: January 12, 2024: White count 8.1 hemoglobin 9.1 platelets 232 sodium 138 potassium 3.6 creatinine 0.92 BUN 24 Assessment plan: -Odynophagia, resulting from patient having esophageal tumor which is above the esophagogastro junction. It is somewhat localized from what he tells me. His last EGD [address] Gore at [facility]. He also has an ulcer on top of the tumor. He was offered surgery but he declined the same. Now patient for the last 5-6 is having more more trouble and painful eating. It may be notices patient is drinking about 1 dozen beers every week up till 2 weeks ago. Had a lengthy discussion with the patient. Other option will be having a feeding tube. But given that he was given an option that since the tumor is localized then he should go back and talk to his surgeon/oncologist about resection of the tumor and may get some quality of life. Spoke to Dr. Kimbrough : Patient had declined surgery in the past. Given that patient is considering surgery now, patient could have a J-tube. Not a G-tube. He will see the patient outpatient to stage him again. -Mild protein calorie malnutrition from decreased oral intake Nutritional support discussed with patient. -Essential hypertension Vasotec -Hyperlipidemia Zocor 40 mg nightly -Esophageal cancer supposedly localized with a ulcer on top of it. Follow-up with Dr. Kimbrough oncologist -DNR -Patient's son Carlos and his daughter Elis other medical POA Disposition: Home Past Medical History Additional Past Medical History / Comment(s): Esophageal cancer (August 2022 diagnosis) Chemo and radiation History of Any Multi-Drug Resistant Organisms: None Reported Past Psychological History: No Psychological Hx Reported Smoking Status: Former smoker Past Alcohol Use History: Occasional Plan - Discharge Summary New Discharge Prescriptions: Continue Simvastatin [Zocor] 40 mg PO HS Omeprazole 40 mg PO AC-BID Enalapril [Vasotec] 10 mg PO DAILY Discontinued Sucralfate [Carafate] 1 gm PO QID Discharge Medication List Enalapril [Vasotec] 10 mg PO DAILY 01/12/24 [History] Omeprazole 40 mg PO AC-BID 01/12/24 [History] Simvastatin [Zocor] 40 mg PO HS 01/12/24 [History] Follow up Appointment(s)/Referral(s): Corey Guevara MD [Primary Care Provider] - 01/20/24 4:30 pm ([facility] - [phone]) Mar Kimbrough MD [STAFF PHYSICIAN] - 01/25/24 4:30 pm Discharge Disposition: HOME SELF-CARE
== END 2024-01-14 12:09 | disposition home or self-care (01) ==
LOC: EC 17:11 → 5NMEDONC 18:28
PROVIDERS: ADMIT Hospitalist; ATTEND Hospitalist
DX: E86.0 Dehydration (principal); R13.19 Other dysphagia; R63.4 Abnormal weight loss; C15.9 Malignant neoplasm of esophagus, unspecified; E78.5 Hyperlipidemia, unspecified; R63.0 Anorexia; I10 Essential (primary) hypertension; Z66 Do not resuscitate; Z68.1 Body mass index [BMI] 19.9 or less, adult; Z79.899 Other long term (current) drug therapy; Z87.891 Personal history of nicotine dependence; Z92.3 Personal history of irradiation; Z92.21 Personal history of antineoplastic chemotherapy
CPT/HCPCS: 96372; 96361; 96374; 99284; 36415; 80053; 85025; G0378 ×3; J1650; J2470

== ENCOUNTER 2024-01-19 13:10 | Emergency (ER) | payer MEDICARE ==
[2024-01-19] MEDS ORDERED: RX INFO: IV CONTRAST WAS GIVEN 1 EACH MISC MISCELLANE PRN (13:44)
[2024-01-19] MEDS: PANTOPRAZOLE 40 MG/10 ML VIAL IVP STA ×2 (13:57→16:25)
[2024-01-19] MEDS: ONDANSETRON 4 MG/2 ML VIAL IVP STA (13:57)
[2024-01-19 14:10] LABS: Basophils % (A) 0 %; Eosinophils % (A) 0 %; Hypochromasia Slight; Lymphocytes # (A) 0.3 k/uL (1.0-4.8); Lymphocytes % (A) 3 %; MCH 31.3 pg (25.0-35.0); MCV 95.1 fL (80.0-100.0); Mean Platelet Volume 8.4; Monocytes # (A) 0.4 k/uL (0-1.0); Monocytes % (A) 5 %; Neutrophils # (A) 8.9 k/uL (1.3-7.7); Neutrophils % (A) 91 %; Platelet Count 277 k/uL (150-450); Poikilocytosis Slight; RBC 1.48 m/uL (4.30-5.90); RDW 13.2 % (11.5-15.5); WBC 9.8 k/uL (3.8-10.6)
[2024-01-19 14:12] LABS: HCT 14.1 % (39.0-53.0); HGB 4.6 gm/dL (13.0-17.5)
[2024-01-19 14:19] LABS: Prothrombin Time 11.2 sec (10.0-12.5)
[2024-01-19 14:22] LABS: ALT 13 U/L (4-49); AST 17 U/L (17-59); African American GFR (CKD) >90 (>60 ml/min/1.73 sqM); Albumin 2.8 g/dL (3.5-5.0); Alkaline Phosphatase 48 U/L (38-126); Anion Gap 3 mmol/L; Blood Urea Nitrogen 31 mg/dL (9-20); Calcium 8.6 mg/dL (8.4-10.2); Carbon Dioxide 24 mmol/L (22-30); Chloride 109 mmol/L (98-107); Glucose 117 mg/dL (74-99); Magnesium 1.9 mg/dL (1.6-2.3); Non-African American GFR(CKD) 81 (>60 ml/min/1.73 sqM); Potassium 4.1 mmol/L (3.5-5.1); Sodium 136 mmol/L (137-145); Total Bilirubin 0.2 mg/dL (0.2-1.3); Total Protein 4.7 g/dL (6.3-8.2)
[2024-01-19 14:31] LABS: Partial Thromboplastin Time 21.6 sec (22.0-30.0)
--- NOTE | 2024-01-19 14:39 | ED ---
General Adult HPI - General Source: patient, EMS, RN notes reviewed, old records reviewed Mode of arrival: EMS <Issac Chacko - Last Filed: 01/19/24 15:11> <Marina Kemp - Last Filed: 01/19/24 23:17> - General Chief complaint: GI Bleed Stated complaint: Rectal bleeding Time Seen by Provider: 01/19/24 13:35 - History of Present Illness Initial comments: Patient is a 83-year-old male who presents emergency department complaining of black tarry stools. He has been noticing these since he was discharged from the hospital a week ago but had been a little bit before that. Has a history of known esophageal cancer status post chemo and radiation. Had an EGD done recently which showed that it had an ulcer on it. Denies any hematemesis. Denies any hemoptysis. Denies any shortness of breath or chest pain. States he feels lightheaded when he stands up. Denies any blood in his urine. Presents for further evaluation at this time. Patient is not on blood thinners.Patient states that he has been feeling lightheaded anytime he stands up and has been feeling extremely weak since discharge last week. The dark tarry stools has been going on since that time. (Issac Chacko) - Related Data Home Medications Medication Instructions Recorded Confirmed Enalapril [Vasotec] 10 mg PO DAILY 01/12/24 01/19/24 Omeprazole 40 mg PO BID-W/MEALS 01/12/24 01/19/24 Simvastatin [Zocor] 40 mg PO DAILY 01/12/24 01/19/24 Allergies Allergy/AdvReac Type Severity Reaction Status Date / Time hayfever AdvReac Itching Uncoded 01/19/24 18:56 Review of Systems ROS Other: All systems not noted in ROS Statement are negative. <Issac Chacko - Last Filed: 01/19/24 15:11> ROS Other: All systems not noted in ROS Statement are negative. <Marina Kemp - Last Filed: 01/19/24 23:17> ROS Statement: Those systems with pertinent positive or pertinent negative responses have been documented in the HPI. Review of Systems: CONST: Denies fever EYES: Denies blurry vision ENT: Denies nasal congestion C/V: Denies Chest pain RESP: Denies shortness of breath GI: Denies abdominal pain : Denies dysuria SKIN: Denies rash. MSK: Denies joint pain. NEURO: Denies headache (Issac Chacko) Past Medical History Past Medical History: Hyperlipidemia, Hypertension Additional Past Medical History / Comment(s): Esophageal cancer (August 2022 diagnosis) Chemo and radiation History of Any Multi-Drug Resistant Organisms: None Reported Additional Past Surgical History / Comment(s): Rotator cuffs, bilateral; lower back surgery due to staph infection; bilat cataracts Past Anesthesia/Blood Transfusion Reactions: No Reported Reaction Additional Past Anesthesia/Blood Transfusion Reaction / Comment(s): Pt given blood r/t esophageal bleed, no problems Past Psychological History: No Psychological Hx Reported Smoking Status: Former smoker Past Alcohol Use History: Occasional - Past Family History Father Family Medical History: Cancer <Issac Chacko - Last Filed: 01/19/24 15:11> General Exam <Issac Chacko - Last Filed: 01/19/24 15:11> - General Exam Comments Initial Comments: General: Appears in no acute distress. HEAD: Normal with no signs of head trauma. EYES: PERRLA, EOMI, conjunctiva normal, no discharge. ENT: Hearing grossly intact, normal oropharynx. RESPIRATORY: Clear breath sounds bilaterally. No wheezes, rales, or rhonchi. C/V: Regular rate and rhythm. S1 and S2 auscultated, no edema, peripheral pulses 2+ and intact throughout ABD: Abd is soft, nontender, nondistended. Rectal exam performed and reveals dark tarry stools. Occult sent. Good rectal tone. EXT: Normal range of motion, no obvious deformity SKIN: No rashes or lesions observed on exposed skin. NEURO: Alert and oriented x 4. (Issac Chacko) Course Vital Signs 01/19/24 01/19/24 01/19/24 13:19 15:59 16:14 Temperature 97.9 F 98.3 F 98.0 F Pulse Rate 71 81 81 Respiratory 18 18 18 Rate Blood Pressure 125/68 110/45 116/45 O2 Sat by Pulse 98 100 97 Oximetry 01/19/24 01/19/24 01/19/24 16:34 17:19 18:03 Temperature 98.3 F 98.3 F 98.6 F Pulse Rate 75 73 69 Respiratory 18 18 16 Rate Blood Pressure 108/44 117/48 104/47 O2 Sat by Pulse 99 100 100 Oximetry 01/19/24 01/19/24 01/19/24 18:56 19:06 19:26 Temperature 99.2 F 98.5 F 99.1 F Pulse Rate 71 68 72 Respiratory 18 18 15 Rate Blood Pressure 113/74 111/47 99/47 O2 Sat by Pulse 99 98 Oximetry 01/19/24 01/19/24 21:20 22:20 Temperature 98.6 F Pulse Rate 70 68 Respiratory 15 15 Rate Blood Pressure 104/51 109/50 O2 Sat by Pulse 97 97 Oximetry Medical Decision Making - Lab Data Result diagrams: 01/19/24 13:47 01/19/24 13:47 - EKG Data -: EKG Interpreted by Me <Issac Chacko - Last Filed: 01/19/24 15:11> - Lab Data Result diagrams: 01/19/24 13:47 01/19/24 13:47 <Marina Kemp - Last Filed: 01/19/24 23:17> - Medical Decision Making Was pt. sent in by a medical professional or institution (, PA, HYDRAULIC PUNCH PRESS OPERATOR, urgent care, hospital, or long term...) When possible be specific @ -No Did you speak to anyone other than the patient for history (EMS, parent, family, police, friend...)? What history was obtained from this source @ -No Did you review nursing and triage notes (agree or disagree)? Why? @ -I reviewed and agree with nursing and triage notes Were old charts reviewed (outside hosp., previous admission, EMS record, old EKG, old radiological studies, urgent care reports/EKG's, long term records)? Report findings @ -Compared with chart from January 12, 2024 when hemoglobin was 9.1 Differential Diagnosis (chest pain, altered mental status, abdominal pain women, abdominal pain men, vaginal bleeding, weakness, fever, dyspnea, syncope, headache, dizziness, GI bleed, back pain, seizure, CVA, palpatations, mental health, musculoskeletal)? @ -Differential GI Bleed: Esophageal varices, aortoenteric fistula, Maggie-Diehl, gastritis, peptic ulcer disease, diverticulosis, inflammatory bowel disease, hemorrhoids, fissure, colitis, malignancy, Meckel's diverticulum, this is not meant to be an all-in clusive list. EKG interpreted by me (3pts min.). @ -As above X-rays interpreted by me (1pt min.). @ -None done CT interpreted by me (1pt min.). @ -Pending U/S interpreted by me (1pt. min.). @ -None done What testing was considered but not performed or refused? (CT, X-rays, U/S, labs)? Why? @ -None What meds were considered but not given or refused? Why? @ -None Did you discuss the management of the patient with other professionals (professionals i.e. DrDong, PA, HYDRAULIC PUNCH PRESS OPERATOR, lab, RT, psych nurse, social professionals, associate software engineer, teacher, philanthropy officer, supervisor case loading)? Give summary @ -No Was smoking cessation discussed for >3mins.? @ -No Was critical care preformed (if so, how long)? @ -No Were there social determinants of health that impacted care today? How? (Homelessness, low income, unemployed, alcoholism, drug addiction, transportation, low edu. Level, literacy, decrease access to med. care, usp, rehab)? @ -No Was there de-escalation of care discussed even if they declined (Discuss DNR or withdrawal of care, Hospice)? DNR status @ -No What co-morbidities impacted this encounter? (DM, HTN, Smoking, COPD, CAD, Cancer, CVA, ARF, Chemo, Hep., AIDS, mental health diagnosis, sleep apnea, morb id obesity)? @ -Esophageal cancer Was patient admitted / discharged? Hospital course, mention meds given and route, prescriptions, significant lab abnormalities, going to OR and other pertinent info. @ -Patient is an 83-year-old male who presents emergency department dark tarry stools. Concern for GI bleed. He is not on blood thinners. Has had an ulcer on his cancer in his esophagus previously. Presents for further evaluation. Symptoms have been ongoing for over a week. Laboratory studies will be sent for GI bleed. We also obtain CT imaging for GI protocol. Patient was in agreement this plan. Vitals currently within acceptable limits. EKG shows no signs of acute ischemia. Patient does have a normocytic anemia with a hemoglobin of 4.6 which is decreased from when he was here 1 week ago on October 8, when hemoglobin was 9.1. BUN is also elevated from that time to 31. Occult blood positive. Gross blood on rectal exam was dark black and tarry. CT imaging is still pending at this time. Patient signed out to Dr. Kemp pending results of imaging. 2 units of packed red blood cells ordered by myself. Patient given a total of 80 mg of IV Protonix. Undiagnosed new problem with uncertain prognosis? @ -No Drug Therapy requiring intensive monitoring for toxicity (Heparin, Nitro, Insulin, Cardizem)? @ -No Were any procedures done? @ -No Diagnosis/symptom? @ -GI bleed, symptomatic anemia Acute, or Chronic, or Acute on Chronic? @ -Acute Uncomplicated (without systemic symptoms) or Complicated (systemic symptoms)? @ -Complicated Side effects of treatment? @ -No Exacerbation, Progression, or Severe Exacerbation? @ -No Poses a threat to life or bodily function? How? (Chest pain, USA, PA, pneumonia, PE, COPD, DKA, ARF, appy, cholecystitis, CVA, Diverticulitis, Homicidal, Suicidal, threat to staff... and all critical care pts) @ -Yes (Issac Chacko) Was patient admitted / discharged? Hospital course, mention meds given and route, prescriptions, significant lab abnormalities, going to OR and other pertinent info. @ -Upon arrival patient seen and evaluated in room 18. He was a signout from Dr. Chacko. Patient was pending CT of his chest. This was performed and does demonstrate hyperemia of the distal esophagus with esophageal wall thickening. This is more diffuse compared to his prior PET scan done in June. Consider PET versus direct visualization. This is discussed with the patient. He is being transfused a unit of blood at this time. He remains hemodynamically stable. I discussed the treatment options with the patient. Informed him that we do not have GI services available at our hospital. He was agreeable to transfer for his active upper GI bleed. He is established at [facility]. Reports that he had previous nuclear radiation at their facility earlier this year. Follow with Dr. Luke from GI. He is agreeable to transfer to [facility]. I called and spoke with Dr. Jordan. She does accept the patient as a transfer. Patient is awaiting a bed. Repeat hemoglobin ordered for 11 PM Undiagnosed new problem with uncertain prognosis? @ -No Drug Therapy requiring intensive monitoring for toxicity (Heparin, Nitro, Insulin, Cardizem)? @ -Blood product transfusion Were any procedures done? @ -No Diagnosis/symptom? @ -Acute upper GI bleed, esophageal cancer, acute blood loss anemia status post 2 units PRBCs Acute, or Chronic, or Acute on Chronic? @ -Acute on chronic Uncomplicated (without systemic symptoms) or Complicated (systemic symptoms)? @ -Complicated Side effects of treatment? @ -No Exacerbation, Progression, or Severe Exacerbation? @ -No Poses a threat to life or bodily function? How? (Chest pain, USA, PA, pneumonia, PE, COPD, DKA, ARF, appy, cholecystitis, CVA, Diverticulitis, Homicidal, Suicidal, threat to staff... and all critical care pts) @ -Yes as patient is having significant blood loss anemia from his upper GI bleed (Marina Kemp) - Lab Data Lab Results 01/19/24 01/19/24 01/19/24 Range/Units 13:47 13:47 13:47 WBC 9.8 (3.8-10.6) k/uL RBC 1.48 L (4.30-5.90) m/uL Hgb 4.6 L* D (13.0-17.5) gm/dL Hct 14.1 L* (39.0-53.0) % MCV 95.1 (80.0-100.0) fL MCH 31.3 (25.0-35.0) pg MCHC 33.0 (31.0-37.0) g/dL RDW 13.2 (11.5-15.5) % Plt Count 277 (150-450) k/uL MPV 8.4 Neutrophils % 91 % Lymphocytes % 3 % Monocytes % 5 % Eosinophils % 0 % Basophils % 0 % Neutrophils # 8.9 H (1.3-7.7) k/uL Lymphocytes # 0.3 L (1.0-4.8) k/uL Monocytes # 0.4 (0-1.0) k/uL Eosinophils # 0.0 (0-0.7) k/uL Basophils # 0.0 (0-0.2) k/uL Hypochromasia Slight Poikilocytosis Slight PT 11.2 (10.0-12.5) sec INR 1.0 (<1.2) APTT 21.6 L (22.0-30.0) sec Sodium (137-145) mmol/L Potassium (3.5-5.1) mmol/L Chloride (98-107) mmol/L Carbon Dioxide (22-30) mmol/L Anion Gap mmol/L BUN (9-20) mg/dL Creatinine (0.66-1.25) mg/dL Est GFR (CKD-EPI)AfAm (>60 ml/min/1.73 sqM) Est GFR (CKD-EPI)NonAf (>60 ml/min/1.73 sqM) Glucose (74-99) mg/dL Plasma Lactic Acid Judd (0.7-2.0) mmol/L Calcium (8.4-10.2) mg/dL Magnesium (1.6-2.3) mg/dL Total Bilirubin (0.2-1.3) mg/dL AST (17-59) U/L ALT (4-49) U/L Alkaline Phosphatase (38-126) U/L Total Protein (6.3-8.2) g/dL Albumin (3.5-5.0) g/dL Urine Color Urine Appearance (Clear) Urine pH (5.0-8.0) Ur Specific [place] (1.001-1.035) Urine Protein (Negative) Urine Glucose (UA) (Negative) Urine Ketones (Negative) Urine Blood (Negative) Urine Nitrite (Negative) Urine Bilirubin (Negative) Urine Urobilinogen (<2.0) mg/dL Ur Leukocyte Esterase (Negative) Stool Occult Blood Positive (Negative) Blood Type Blood Type Confirm Blood Type Recheck Bld Type Recheck Status Antibody Screen Crossmatch Spec Expiration Date 01/19/24 01/19/24 01/19/24 Range/Units 13:47 13:47 13:48 WBC (3.8-10.6) k/uL RBC (4.30-5.90) m/uL Hgb (13.0-17.5) gm/dL Hct (39.0-53.0) % MCV (80.0-100.0) fL MCH (25.0-35.0) pg MCHC (31.0-37.0) g/dL RDW (11.5-15.5) % Plt Count (150-450) k/uL MPV Neutrophils % % Lymphocytes % % Monocytes % % Eosinophils % % Basophils % % Neutrophils # (1.3-7.7) k/uL Lymphocytes # (1.0-4.8) k/uL Monocytes # (0-1.0) k/uL Eosinophils # (0-0.7) k/uL Basophils # (0-0.2) k/uL Hypochromasia Poikilocytosis PT (10.0-12.5) sec INR (<1.2) APTT (22.0-30.0) sec Sodium 136 L (137-145) mmol/L Potassium 4.1 (3.5-5.1) mmol/L Chloride 109 H (98-107) mmol/L Carbon Dioxide 24 (22-30) mmol/L Anion Gap 3 mmol/L BUN 31 H (9-20) mg/dL Creatinine 0.83 (0.66-1.25) mg/dL Est GFR (CKD-EPI)AfAm >90 (>60 ml/min/1.73 sqM) Est GFR (CKD-EPI)NonAf 81 (>60 ml/min/1.73 sqM) Glucose 117 H (74-99) mg/dL Plasma Lactic Acid Judd 1.4 (0.7-2.0) mmol/L Calcium 8.6 (8.4-10.2) mg/dL Magnesium 1.9 (1.6-2.3) mg/dL Total Bilirubin 0.2 (0.2-1.3) mg/dL AST 17 (17-59) U/L ALT 13 (4-49) U/L Alkaline Phosphatase 48 (38-126) U/L Total Protein 4.7 L (6.3-8.2) g/dL Albumin 2.8 L (3.5-5.0) g/dL Urine Color Colorless Urine Appearance Clear (Clear) Urine pH 6.0 (5.0-8.0) Ur Specific [place] 1.049 H (1.001-1.035) Urine Protein Negative (Negative) Urine Glucose (UA) Negative (Negative) Urine Ketones Negative (Negative) Urine Blood Negative (Negative) Urine Nitrite Negative (Negative) Urine Bilirubin Negative (Negative) Urine Urobilinogen <2.0 (<2.0) mg/dL Ur Leukocyte Esterase Negative (Negative) Stool Occult Blood (Negative) Blood Type Blood Type Confirm Blood Type Recheck Bld Type Recheck Status Antibody Screen Crossmatch Spec Expiration Date 01/19/24 01/19/24 Range/Units 13:48 13:55 WBC (3.8-10.6) k/uL RBC (4.30-5.90) m/uL Hgb (13.0-17.5) gm/dL Hct (39.0-53.0) % MCV (80.0-100.0) fL MCH (25.0-35.0) pg MCHC (31.0-37.0) g/dL RDW (11.5-15.5) % Plt Count (150-450) k/uL MPV Neutrophils % % Lymphocytes % % Monocytes % % Eosinophils % % Basophils % % Neutrophils # (1.3-7.7) k/uL Lymphocytes # (1.0-4.8) k/uL Monocytes # (0-1.0) k/uL Eosinophils # (0-0.7) k/uL Basophils # (0-0.2) k/uL Hypochromasia Poikilocytosis PT (10.0-12.5) sec INR (<1.2) APTT (22.0-30.0) sec Sodium (137-145) mmol/L Potassium (3.5-5.1) mmol/L Chloride (98-107) mmol/L Carbon Dioxide (22-30) mmol/L Anion Gap mmol/L BUN (9-20) mg/dL Creatinine (0.66-1.25) mg/dL Est GFR (CKD-EPI)AfAm (>60 ml/min/1.73 sqM) Est GFR (CKD-EPI)NonAf (>60 ml/min/1.73 sqM) Glucose (74-99) mg/dL Plasma Lactic Acid Judd (0.7-2.0) mmol/L Calcium (8.4-10.2) mg/dL Magnesium (1.6-2.3) mg/dL Total Bilirubin (0.2-1.3) mg/dL AST (17-59) U/L ALT (4-49) U/L Alkaline Phosphatase (38-126) U/L Total Protein (6.3-8.2) g/dL Albumin (3.5-5.0) g/dL Urine Color Urine Appearance (Clear) Urine pH (5.0-8.0) Ur Specific [place] (1.001-1.035) Urine Protein (Negative) Urine Glucose (UA) (Negative) Urine Ketones (Negative) Urine Blood (Negative) Urine Nitrite (Negative) Urine Bilirubin (Negative) Urine Urobilinogen (<2.0) mg/dL Ur Leukocyte Esterase (Negative) Stool Occult Blood (Negative) Blood Type A Negative Blood Type Confirm A Negative Blood Type Recheck No Previous Record Bld Type Recheck Status CABO Indicated Antibody Screen NEGATIVE Crossmatch See Detail Spec Expiration Date 01/22/20242347 - EKG Data EKG Comments: 12-lead Electrocardiogram Interpretation Note EKG was reviewed and interpreted by myself. 12-lead ECG performed at 1350 is interpreted by me as revealing normal sinus rhythm at a rate of 69 beats per minute. [place] is normal. OH interval is 137 ms, QRS duration is 98 ms, QTc is 437 ms.. There were no ST or T wave abnormalities to suggest myocardial ischemia or injury. R wave progression across the precordium was satisfactory. By my interpretation this EKG is non-diagnostic for acute ischemia. (Issac Chacko) Disposition <Issac Chacko - Last Filed: 01/19/24 15:11> Is patient prescribed a controlled substance at d/c from ED?: No - Out of Hospital Transfer - Req. Specs Out of Hospital Transfer - Requested Specifics: Other Emergency Center ([facility]) <Marina Kemp - Last Filed: 01/19/24 23:17> Clinical Impression: GI bleed, Symptomatic anemia Disposition: OTHER INSTITUTION NOT DEFINED Condition: Serious Referrals: Corey Guevara MD [Primary Care Provider] - 1-2 days
--- NOTE | 2024-01-19 15:33 | CT ---
EXAMINATION TYPE: CT chest abdomen pelvis without contrast. CT angiogram chest abdomen pelvis. CT DLP: 1511 mGycm, Automated exposure control for dose reduction was used. DATE OF EXAM: 01/19/2024 3:22 PM COMPARISON: 06/04/2023. CLINICAL INDICATION: Male, 83 years old with history of GI bleed protocol; PHH, Weakness, black tarry stools, dizziness. TECHNIQUE: CT noncontrast chest abdomen and pelvis with axial imaging and sagittal reformats called by CT angiog milly chest abdomen and pelvis. Dissection protocol: Multiple axial CT images of the chest, abdomen, an d pelvis were obtained prior and to the administration of IV contrast. 3-D reformats and maximum inte nsity projection format were performed on a separate workstation. Contrast used:100ml mL of Isovue 370 with IV Contrast, Oral contrast used: FINDINGS: ARTERIAL VASCULATURE: Ascending thoracic aorta and descending thoracic aorta are within normal limits for size. There is no evidence for intramural hematoma within the aorta on noncontrast imaging. Post contrast imaging demonstrates no evidence for dissection. The major vessels of the aortic arch are pa tent. The major vessels of the abdominal aorta are patent. PULMONARY ARTERIAL VASCULATURE: Normal caliber. No evidence of filling defect to suggest pulmonary em bolus. VENOUS SYSTEM: Unremarkable. LUNGS/ PLEURA: The lung parenchyma appears unremarkable. AIRWAY: Patent and unremarkable. HEART: Size within normal limits. Moderate to severe coronary artery calcifications. Aortic valve jerica cifications. MEDIASTINUM: No gross evidence of adenopathy. Circumferential wall thickening of the esophagus with l ayering debris. MUSCULOSKELETAL: No acute osseous abnormalities SOFT TISSUES/LYMPH NODES: Unremarkable. LOWER NECK: Thyroid nodule new leftr thyroid gland measuring up to 18 mm. Abdomen: LIVER: Unremarkable GALLBLADDER AND BILE DUCTS: Unremarkable. PANCREAS: Unremarkable. SPLEEN: Unremarkable. ADRENAL GLANDS: Unremarkable. KIDNEYS AND URETERS: No evidence of hydronephrosis or renal calculus. The ureters are unremarkable. PELVIS BLADDER: Unremarkable REPRODUCTIVE: Prostate is enlarged in size measuring 5.2 cm in transverse dimension. ABDOMEN & PELVIS STOMACH AND BOWEL: Evaluation of the gastrointestinal tract demonstrates no evidence of high density hemorrhage arterial phase or pooling of blood on delayed phases. No evidence of bowel obstruction. Hi gh density feces are seen throughout the colon. PERITONEUM/RETROPERITONEUM: No evidence of pneumoperitoneum or free fluid. MUSCULOSKELETAL: No acute osseous abnormalities trauma surgical changes to the spine. Hardware appear s intact. LYMPH NODES: No gross evidence for lymphadenopathy. SOFT TISSUE/ABDOMINAL WALL: Unremarkable IMPRESSION: 1. Hyperemia of the distal esophagus without definitive evidence for gastrointestinal hemorrhage. Es ophageal wall thickening which is somewhat more diffuse compared to prior PET. Given the History of m alignancy correlate for progression of disease consider further workup with PET/CT for comparison to 06/04/2023 or Consider further workup and direct visualization. 2. No evidence for aortic dissection, aneurysm or occlusion. 3. Moderate to severe coronary artery calcifications. 4. Aortic valve calcifications. 5. Left thyroid nodule. Complete evaluation of the left thyroid ultrasound recommended if not alread y performed. [facility], , 01/19/2024 3:31 PM
[2024-01-19 22:24] LABS: Appearance,Urine Clear (Clear); Bilirubin,Urine Negative (Negative); Blood,Urine Negative (Negative); Color,Urine Colorless; Glucose,Urine (UA) Negative (Negative); Ketones,Urine Negative (Negative); Leukocyte Esterase,Urine Negative (Negative); Nitrite,Urine Negative (Negative); Protein,Urine Negative (Negative); Urobilinogen,Urine <2.0 mg/dL (<2.0)
[2024-01-19 22:26] LABS: Specific Gravity,Urine 1.049 (1.001-1.035)
[2024-01-19 23:41] LABS: MCHC 33.5 g/dL (31.0-37.0); MCV 92.6 fL (80.0-100.0); Mean Platelet Volume 8.6; Platelet Count 243 k/uL (150-450); Poikilocytosis Slight; RBC 2.05 m/uL (4.30-5.90); RDW 13.4 % (11.5-15.5); WBC 8.4 k/uL (3.8-10.6)
[2024-01-19 23:43] LABS: HGB 6.3 gm/dL (13.0-17.5)
[2024-01-19 23:45] LABS: HCT 18.9 % (39.0-53.0)
[2024-01-20 03:25] LABS: Basophils % (A) 0 %; Eosinophils # (A) 0.1 k/uL (0-0.7); Eosinophils % (A) 1 %; Hypochromasia Slight; Lymphocytes # (A) 0.8 k/uL (1.0-4.8); Lymphocytes % (A) 10 %; MCH 31.5 pg (25.0-35.0); MCHC 33.7 g/dL (31.0-37.0); MCV 93.6 fL (80.0-100.0); Mean Platelet Volume 8.4; Monocytes # (A) 0.5 k/uL (0-1.0); Monocytes % (A) 7 %; Neutrophils # (A) 6.2 k/uL (1.3-7.7); Neutrophils % (A) 81 %; Platelet Count 251 k/uL (150-450); Poikilocytosis Moderate; RBC 1.94 m/uL (4.30-5.90); RDW 13.6 % (11.5-15.5); WBC 7.7 k/uL (3.8-10.6)
[2024-01-20 03:52] LABS: HGB 6.1 gm/dL (13.0-17.5)
[2024-01-20 03:53] LABS: HCT 18.2 % (39.0-53.0)
[2024-01-20] MEDS: CALCIUM GLUCONATE IN NACL 1 GM in SALINE 1 100ML.BAG IVPB ONE (04:05)
[2024-01-20] MEDS: PANTOPRAZOLE 40 MG/10 ML VIAL IVP SCH (09:41)
[2024-01-20] MEDS: DEXTROSE 5%-0.45% NACL 1,000 ML IV SCH (12:33)
[2024-01-20 12:43] LABS: Basophils % (A) 0 %; Eosinophils % (A) 0 %; HCT 22.7 % (39.0-53.0); HGB 7.5 gm/dL (13.0-17.5); Hypochromasia Slight; Lymphocytes # (A) 0.5 k/uL (1.0-4.8); Lymphocytes % (A) 6 %; MCH 31.7 pg (25.0-35.0); MCHC 33.1 g/dL (31.0-37.0); MCV 95.8 fL (80.0-100.0); Mean Platelet Volume 7.9; Monocytes # (A) 0.6 k/uL (0-1.0); Monocytes % (A) 7 %; Neutrophils # (A) 7.3 k/uL (1.3-7.7); Neutrophils % (A) 85 %; Platelet Count 265 k/uL (150-450); Poikilocytosis Slight; RBC 2.37 m/uL (4.30-5.90); RDW 13.5 % (11.5-15.5); WBC 8.6 k/uL (3.8-10.6)
--- NOTE | 2024-01-20 13:08 | P.CONS ---
History of Present Illness - Reason for Consult Consult date: 01/20/24 Medical management Requesting physician: Marina Kemp - Chief Complaint Dark stools - History of Present Illness very pleasant 83-year-old patient who follows with Dr. Guevara. Oncologist Dr. Kimbrough. diagnosis of esophageal cancer. Patient's last EGD was with Dr. Gore out of [facility] few weeks ago. He was told he has a localized esophageal tumor with a ulcer on top of it. He was offered surgery but patient then had declined the same. Patient the past has received 5 weeks of chemotherapy followed by 5 weeks of x-ray radiation. This was followed by 3 nuclear radiation this was about 3 months ago. Patient recently admitted to the hospital from January 11 through January 13. [For 5 to 6 weeks patient noticed that he been having increasing pain with swallowing swallowing which has become much more significant in 3 weeks. Unable to keep anything really down. Given having some custard in the ER was very painful he had to stop after 2 3 teaspoons. He does follow with oncologist Dr. Kimbrough. Has been losing weight. Patient was drinking up to 1 dozen beers a week. Up till about 2 weeks ago prior to last admission patient and decided to have possible surgical intervention. Plan was for him to follow-up with Dr. Kimbrough he will do further testing and then decide about further intervention. Patient is able to tolerate full liquid and a very soft diet. Prior to discharge..]. Patient now presents 3 to 4 days of dark stool. Dizzy lightheaded. Patient is discovered to have a hemoglobin of 4.6 down from 9.1 on January 11. Patient overnight has received 3 units of blood. Hemoglobin following that is 7.5. ER physician Dr. Kerr spoke to the [facility]. Patient is to get transferred. Pending the same. Patient is otherwise NPO. We do not have any surgical expertise to handle his current presentation. Hence he is not being admitted here. He is in the queue to get transferred. Review of systems: GEN.: Decreased appetite, weight loss EYES: None HEENT: None NECK: None RESPIRATORY: None CARDIOVASCULAR: None GASTROINTESTINAL: Painful swallowing, as above GENITOURINARY: None MUSCULOSKELETAL: None LYMPHATICS: None HEMATOLOGICAL: None PSYCHIATRY: None NEUROLOGICAL: None Social history: Lives alone. Recently become a . Patient smoked for about 20 years stopped about 40 years ago. Retired from [employer] patient does drink a dozen beer a week. Last drink was 2 weeks ago. Physical examination: VITAL SIGNS: 97.8, 62, 18, 123 x 49, 99% room air GENERAL: BMI 18.1 laying in bed awake tired EYES: Pupils equal. Conjunctiva pale HEENT: External appearance of nose and ears normal, oral cavity grossly normal. NECK: JVD not raised; masses not palpable. HEART: First and second heart sounds are normal; no edema. LUNGS: Respiratory rate normal; clear to auscultation. ABDOMEN: Soft, nontender, liver spleen not palpable, no masses palpable. PSYCH: Alert and oriented x3; mood and affect christy l. MUSCULOSKELETAL:No Clubbing/cyanosis;muscles-grossly intact. Decreased muscle mass subcutaneous fat. NEUROLOGICAL: Cranial nerves grossly intact; no facial asymmetry, power and sensation grossly intact. LYMPHATICS: No lymph nodes palpable in the axilla and neck INVESTIGATIONS, reviewed in the clinical context: January 19: Hemoglobin 7.5 January 18: White count 9.8 hemoglobin 4.6 platelets 277 sodium 136 potassium 4.1 BUN 31 creatinine 0.83 Previous labs January 12, 2024: Hemoglobin 9.1 Assessment plan: -Acute severe blood loss anemia from ulcer on the esophageal mass. Patient been having dark stools for last 4 days. Symptomatic. Patient has received 3 units of blood overnight. Current hemoglobin 7.5. Currently n.p.o. except ice chips -Odynophagia, resulting from patient having esophageal tumor which is above the esophagogastro junction. It is somewhat localized from what he tells me. His last EGD [address] Gore at [facility]. He also has an ulcer on top of the tumor. He was offered surgery but he declined the same. Now patient for the last 5-6 is having more more trouble and painful eating. It may be notices patient is drinking about 1 dozen beers every week after recently. Admission earlier this month patient decided to follow-up with Dr. Kimbrough to see further options including surgery. Was pending a appointment with him this coming Thursday. Patient has been on full liquid diet. . -Mild protein calorie malnutrition from decreased oral intake Nutritional support discussed with patient. -Essential hypertension Vasotec-hold for now -Hyperlipidemia Zocor 40 mg nightly-hold for now -Esophageal cancer supposedly localized with a ulcer on top of it. Follow-up with Dr. Kimbrough oncologist -DNR -Patient's son Carlos and his daughter Elis other medical POA Discussed with patient. Hold off oral medications. Pending transfer to [facility]. Thank you Past Medical History Past Medical History: Hyperlipidemia, Hypertension Additional Past Medical History / Comment(s): Esophageal cancer (August 2022 diagnosis) Chemo and radiation History of Any Multi-Drug Resistant Organisms: None Reported Additional Past Surgical History / Comment(s): Rotator cuffs, bilateral; lower back surgery due to staph infection; bilat cataracts Past Anesthesia/Blood Transfusion Reactions: No Reported Reaction Additional Past Anesthesia/Blood Transfusion Reaction / Comm: Pt given blood r/t esophageal bleed, no problems Past Psychological History: No Psychological Hx Reported Smoking Status: Former smoker Past Alcohol Use History: Occasional - Past Family History Father Family Medical History: Cancer Medications and Allergies Home Medications Medication Instructions Recorded Confirmed Type Enalapril [Vasotec] 10 mg PO DAILY 01/12/24 01/19/24 History Omeprazole 40 mg PO BID-W/MEALS 01/12/24 01/19/24 History Simvastatin [Zocor] 40 mg PO DAILY 01/12/24 01/19/24 History Allergies Allergy/AdvReac Type Severity Reaction Status Date / Time hayfever AdvReac Itching Uncoded 01/19/24 18:56 Physical Exam Vitals: Vital Signs Temp Pulse Resp BP Pulse Ox 01/20/24 08:10 97.8 F 73 20 125/87 98 01/20/24 05:43 98.8 F 66 15 108/45 99 01/20/24 05:23 98.6 F 63 15 103/46 98 01/20/24 05:05 98.3 F 63 15 107/46 98 01/20/24 04:31 60 16 106/49 98 01/20/24 02:47 66 18 108/48 98 01/20/24 02:00 65 15 112/49 98 01/20/24 01:00 66 15 100/49 98 01/19/24 23:52 71 15 105/48 98 01/19/24 23:00 79 15 118/48 98 01/19/24 22:40 65 16 112/49 98 01/19/24 22:20 68 15 109/50 97 01/19/24 21:20 98.6 F 70 15 104/51 97 01/19/24 19:26 99.1 F 72 15 99/47 98 01/19/24 19:06 98.5 F 68 18 111/47 99 01/19/24 18:56 99.2 F 71 18 113/74 01/19/24 18:03 98.6 F 69 16 104/47 100 01/19/24 17:19 98.3 F 73 18 117/48 100 01/19/24 16:34 98.3 F 75 18 108/44 99 01/19/24 16:14 98.0 F 81 18 116/45 97 01/19/24 15:59 98.3 F 81 18 110/45 100 01/19/24 13:19 97.9 F 71 18 125/68 98 Intake and Output 01/19/24 01/20/24 01/20/24 22:59 06:59 14:59 Intake Total 591 0 310 Balance 591 0 310 Intake: Blood Product 591 0 310 Rc As-1 Unit 0 310 [id number] Rc As-1 Unit 310 [id number] Rc Pheresis As-3 Unit 281 [id number] Results CBC & Chem 7: 01/20/24 12:32 01/19/24 13:47 Labs: Abnormal Lab Results - Last 24 Hours (Table) 01/19/24 01/19/24 01/19/24 Range/Units 13:47 13:47 13:47 RBC 1.48 L (4.30-5.90) m/uL Hgb 4.6 L* D (13.0-17.5) gm/dL Hct 14.1 L* (39.0-53.0) % Neutrophils # 8.9 H (1.3-7.7) k/uL Lymphocytes # 0.3 L (1.0-4.8) k/uL APTT 21.6 L (22.0-30.0) sec Sodium 136 L (137-145) mmol/L Chloride 109 H (98-107) mmol/L BUN 31 H (9-20) mg/dL Glucose 117 H (74-99) mg/dL Total Protein 4.7 L (6.3-8.2) g/dL Albumin 2.8 L (3.5-5.0) g/dL Ur Specific [place] (1.001-1.035) Crossmatch 01/19/24 01/19/24 01/19/24 Range/Units 13:47 13:48 22:53 RBC 2.05 L (4.30-5.90) m/uL Hgb 6.3 L* D (13.0-17.5) gm/dL Hct 18.9 L* (39.0-53.0) % Neutrophils # (1.3-7.7) k/uL Lymphocytes # (1.0-4.8) k/uL APTT (22.0-30.0) sec Sodium (137-145) mmol/L Chloride (98-107) mmol/L BUN (9-20) mg/dL Glucose (74-99) mg/dL Total Protein (6.3-8.2) g/dL Albumin (3.5-5.0) g/dL Ur Specific [place] 1.049 H (1.001-1.035) Crossmatch See Detail 01/20/24 Range/Units 03:11 RBC 1.94 L (4.30-5.90) m/uL Hgb 6.1 L* (13.0-17.5) gm/dL Hct 18.2 L* (39.0-53.0) % Neutrophils # (1.3-7.7) k/uL Lymphocytes # 0.8 L (1.0-4.8) k/uL APTT (22.0-30.0) sec Sodium (137-145) mmol/L Chloride (98-107) mmol/L BUN (9-20) mg/dL Glucose (74-99) mg/dL Total Protein (6.3-8.2) g/dL Albumin (3.5-5.0) g/dL Ur Specific [place] (1.001-1.035) Crossmatch
[2024-01-20 18:14] LABS: Glucose,Whole Blood 96 mg/dL (70-110)
[2024-01-21 06:05] LABS: Basophils % (A) 0 %; Eosinophils # (A) 0.1 k/uL (0-0.7); Eosinophils % (A) 2 %; HCT 21.1 % (39.0-53.0); HGB 7.1 gm/dL (13.0-17.5); Hypochromasia Slight; Lymphocytes # (A) 0.5 k/uL (1.0-4.8); Lymphocytes % (A) 7 %; MCH 31.6 pg (25.0-35.0); MCHC 33.9 g/dL (31.0-37.0); MCV 93.3 fL (80.0-100.0); Mean Platelet Volume 8.3; Monocytes # (A) 0.5 k/uL (0-1.0); Monocytes % (A) 7 %; Neutrophils # (A) 6.5 k/uL (1.3-7.7); Neutrophils % (A) 84 %; Platelet Count 246 k/uL (150-450); Poikilocytosis Moderate; RBC 2.26 m/uL (4.30-5.90); RDW 13.6 % (11.5-15.5); WBC 7.8 k/uL (3.8-10.6)
[2024-01-21 06:23] LABS: ALT 12 U/L (4-49); AST 21 U/L (17-59); African American GFR (CKD) >90 (>60 ml/min/1.73 sqM); Albumin 2.6 g/dL (3.5-5.0); Alkaline Phosphatase 43 U/L (38-126); Anion Gap 0 mmol/L; Blood Urea Nitrogen 19 mg/dL (9-20); Calcium 8.1 mg/dL (8.4-10.2); Carbon Dioxide 24 mmol/L (22-30); Chloride 110 mmol/L (98-107); Glucose 136 mg/dL (74-99); Non-African American GFR(CKD) 87 (>60 ml/min/1.73 sqM); Potassium 3.9 mmol/L (3.5-5.1); Sodium 134 mmol/L (137-145); Total Bilirubin 0.7 mg/dL (0.2-1.3); Total Protein 4.4 g/dL (6.3-8.2)
[2024-01-21 13:03] VITALS: RESP 18
[2024-01-21 15:57] VITALS: BP 127/65; PULSE 70; TEMP 98.4
--- NOTE | 2024-01-21 20:33 | P.PN ---
Progress Note - Text Progress Note Date: 01/21/24 - Chief Complaint Dark stools - History of Present Illness very pleasant 83-year-old patient who follows with Dr. Guevara. Oncologist Dr. Kimbrough. diagnosis of esophageal cancer. Patient's last EGD was with Dr. Gore out of [facility] few weeks ago. He was told he has a localized esophageal tumor with a ulcer on top of it. He was offered surgery but patient then had declined the same. Patient the past has received 5 weeks of chemotherapy followed by 5 weeks of x-ray radiation. This was followed by 3 nuclear radiation this was about 3 months ago. Patient recently admitted to the hospital from January 11 through January 13. [For 5 to 6 weeks patient noticed that he been having increasing pain with swallowing swallowing which has become much more significant in 3 weeks. Unable to keep anything really down. Given having some custard in the ER was very painful he had to stop after 2 3 teaspoons. He does follow with oncologist Dr. Kimbrough. Has been losing weight. Patient was drinking up to 1 dozen beers a week. Up till about 2 weeks ago prior to last admission patient and decided to have possible surgical intervention. Plan was for him to follow-up with Dr. Kimbrough he will do further testing and then decide about further intervention. Patient is able to tolerate full liquid and a very soft diet. Prior to discharge..]. Patient now presents 3 to 4 days of dark stool. Dizzy lightheaded. Patient is discovered to have a hemoglobin of 4.6 down from 9.1 on January 11. Patient overnight has received 3 units of blood. Hemoglobin following that is 7.5. ER physician Dr. Kerr spoke to the [facility]. Patient is to get transferred. Pending the same. Patient is otherwise NPO. We do not have any surgical expertise to handle his current presentation. Hence he is not being admitted here. He is in the queue to get transferred. January 20: Saw the patient this afternoon in the ER. Pending transfer to [facility]. Will put the patient on ice chips. Hemoglobin this morning 7.1. Patient is somewhat disconcerted about the fact that transfer is not occurred. No further bowel movements. Social history: Lives alone. Recently become a . Patient smoked for about 20 years stopped about 40 years ago. Retired from [email or web address] patient does drink a dozen beer a week. Last drink was 2 weeks ago. Physical examination: VITAL SIGNS: 98.3, 62, 18, 120 x 53, 98% room air GENERAL: BMI 18.1 laying in bed awake tired EYES: Pupils equal. Conjunctiva pale HEENT: External appearance of nose and ears normal, oral cavity grossly normal. NECK: JVD not raised; masses not palpable. HEART: First and second heart sounds are normal; no edema. LUNGS: Respiratory rate normal; clear to auscultation. ABDOMEN: Soft, nontender, liver spleen not palpable, no masses palpable. PSYCH: Alert and oriented x3; mood and affect christy l. MUSCULOSKELETAL:No Clubbing/cyanosis;muscles-grossly intact. Decreased muscle mass subcutaneous fat. INVESTIGATIONS, reviewed in the clinical context: January 20: White count 7.8 hemoglobin 7.1 platelets 246 potassium 3.9 creatinine 0.7 albumin 2.6 January 19: Hemoglobin 7.5 January 18: White count 9.8 hemoglobin 4.6 platelets 277 sodium 136 potassium 4.1 BUN 31 creatinine 0.83 Previous labs January 12, 2024: Hemoglobin 9.1 Assessment plan: -Acute severe blood loss anemia from ulcer on the esophageal mass. Patient been having dark stools for last 4 days. Symptomatic. Patient has received 3 units of blood overnight. Current hemoglobin 7.1 Patient started on clear liquids -Odynophagia, resulting from patient having esophageal tumor which is above the esophagogastro junction. It is somewhat localized from what he tells me. His last EGD [address] Gore at [facility]. He also has an ulcer on top of the tumor. He was offered surgery but he declined the same. Now patient for the last 5-6 is having more more trouble and painful eating. It may be notices patient is drinking about 1 dozen beers every week after recently. Admission earlier this month patient decided to follow-up with Dr. Kimbrough to see further options including surgery. Was pending a appointment with him this coming Thursday. Currently started on clear liquids . -Moderate protein calorie malnutrition from decreased oral intake -Essential hypertension Vasotec-hold for now -Hyperlipidemia Zocor 40 mg nightly-hold for now -Esophageal cancer supposedly localized with a ulcer on top of it. Follow-up with Dr. Kimbrough oncologist -DNR -Patient's son Carlos and his daughter Elis other medical POA Discussed with the patient. Pending transfer to [facility]. Clear liquid diet. Thank you Past Medical History Past Medical History: Hyperlipidemia, Hypertension Additional Past Medical History / Comment(s): Esophageal cancer (August 2022 diagnosis) Chemo and radiation History of Any Multi-Drug Resistant Organisms: None Reported Additional Past Surgical History / Comment(s): Rotator cuffs, bilateral; lower back surgery due to staph infection; bilat cataracts Past Anesthesia/Blood Transfusion Reactions: No Reported Reaction Additional Past Anesthesia/Blood Transfusion Reaction / Comm: Pt given blood r/t esophageal bleed, no problems Past Psychological History: No Psychological Hx Reported Smoking Status: Former smoker Past Alcohol Use History: Occasional
== END 2024-01-21 15:57 | disposition other institution (70) ==
LOC: EC 13:10
DX: D64.9 Anemia, unspecified (principal); Z88.8 Allergy status to other drugs, medicaments and biological substances; Z87.891 Personal history of nicotine dependence
CPT/HCPCS: 36415 ×3; 93005; 86900; 86901; 80053 ×2; 83605; 83735; 85025 ×3; 85027; 85610; 85730; 86850; 86920; 82272; 81003; 71275; 74174; 99285; 96375 ×2; 96376 ×3; 36430; 96365; 96361; P9016 ×2; J2405; Q9967; J0613; J2470 ×3